=== PATIENT | female | born 1930 | race Caucasian/White ===

== ENCOUNTER 2017-04-01 15:05 | Emergency (ER) | payer MEDICARE ==
[~2017-04-01] VITALS: Ht 154.9 cm; Wt 68.0 kg
[2017-04-01] MEDS ORDERED: AMLO5TAB2 (15:34)
[2017-04-01] MEDS ORDERED: METO-387 (15:34)
[2017-04-01] MEDS ORDERED: WARF-48 (15:34)
[2017-04-01] MEDS ORDERED: CARB-88 (15:34)
[2017-04-01] MEDS ORDERED: LORA0.5T (15:34)
[2017-04-01] MEDS ORDERED: LANS30CA (15:34)
--- NOTE | 2017-04-01 15:38 | ED Cardiac General ---
History of Present Illness General Chief Complaint: Cardiac/General Problems Stated Complaint: LEFT ARM PAIN Nursing Triage Note: ARRIVED VIA AMB WITH WALKER FROM DR CENTENO OFFICE. SEEN HER TODAY FOR OFF AND ON PAIN IN HER LEFT ARM AND WAS SENT OVER FOR AN ABNORMAL EKG. DENIES CHEST PAIN OR SOA. Source: patient, family ([facility]) History of Present Illness Time seen by provider: 15:15 Initial Comments PT ARRIVES VIA POV FROM DR. ARAUJO'S OFFICE IN [place] PT HAS HAD INTERMITTENT TINGLING TO LEFT UPPER ARM FOR 2 WEEKS, IS NOT PRESENT NOW. PT STATES "IT DOESN'T HURT-IT JUST TINGLES SOMETIMES" . STATES IT IS USUALLY WHEN SHE WAKES UP AND THEN WILL GO AWAY ON IT'S OWN. NOTHING WORSENS OR IMPROVES SYMPTOMS NO CHEST PAIN NO NECK OR BACK PAIN NO SHORTNESS OF BREATH NO PALPITATIONS NO DIZZINESS NO NAUSEA/VOMITING NO NUMBNESS OR MOTOR DEFICITS PT HAS CHRONIC LEG SWELLING AND IS NOT ANY DIFFERENT TODAY PT HAD A CABG APPROXIMATELY 5 YEARS AGO EVENTS MANAGER IS IN [place]--DR. M[place] PT WAS SEEN AT DR. ARAUJO'S OFFICE TODAY FOR THIS PROBLEM, WAS NOTED TO HAVE AN ABNORMAL EKG, SO SENT PT HERE. PT HAS NOT TAKEN HER MEDICATIONS TODAY PCP: DR. CENTENO EVENTS MANAGER: DR. MANSFIELD, [place] Allergies and Home Medications Allergies Coded Allergies: levofloxacin (Verified Allergy, Unknown, 04/01/17) Home Medications Amlodipine Besylate 5 Mg Tablet, (Reported) Carbamazepine 200 Mg Tab.er.12h, (Reported) Lansoprazole 30 Mg Capsule., (Reported) Lorazepam 0.5 Mg Tablet, (Reported) Metoprolol Succinate 25 Mg Tab.er.24h, (Reported) Warfarin Sodium 5 Mg Tablet, (Reported) Review of Systems Constitutional: no symptoms reported EENTM: No Symptoms Reported Respiratory: No Symptoms Reported Cardiovascular: See HPI, Edema Gastrointestinal: No Symptoms Reported Genitourinary: No Symptoms Reported Musculoskeletal: no symptoms reported Skin: no symptoms reported Psychiatric/Neurological: See HPI, Denies Numbness, Tingling, Denies Weakness Endocrine: No Symptoms Reported Past Jryawkd-Slojij-Onmwlh Hx Patient Social History Alcohol Use: Denies Use Recreational Drug Use: No Smoking Status: Never a Smoker Recent Foreign Travel: No Contact w/Someone Who Travel: No Recent Infectious Disease Expo: No Recent Hopitalizations: No Surgeries History of Surgeries: Yes (BILATERAL MASTECTOMY; LUNG SURGERY FOR UNKNOWN REASON;LEFT HIP FX/REPLACEMENT) Surgeries: Breast, Cardiac, CABG, Gallbladder, Joint Replacement, Orthopedic Respiratory History of Respiratory Disorde: No Cardiovascular History of Cardiac Disorders: Yes (CABG) Cardiac Disorders: Chronic Edema/Swelling, Coronary Artery Disease, Deep Vein Thrombosis, Hypertension Neurological History of Neurological Disord: Yes (TRIGEMINAL NEURALGIA) Genitourinary History of Genitourinary Disor: No Gastrointestinal History of Gastrointestinal Di: No Musculoskeletal History of Musculoskeletal Dis: No Endocrine History of Endocrine Disorders: No HEENT History of HEENT Disorders: Yes (TRIGEMINAL NEURALGIA) Cancer History of Cancer: Yes Cancer: Breast Psychosocial History of Psychiatric Problem: No Integumentary History of Skin or Integumenta: No Blood Transfusions History of Blood Disorders: No Physical Exam Vital Signs Vital Sign - Last 12Hours 04/01/17 15:05 Temp 98.0 Pulse 64 Resp 16 B/P (MAP) 199/90 Pulse Ox 97 Capillary Refill : Less Than 3 Seconds General Appearance: No Apparent Distress, WD/WN, Anxious HEENT: PERRL/EOMI Neck: Full Range of Motion, Normal Inspection, Non Tender, Supple, Carotid Bruit Respiratory: Normal Breath Sounds, No Accessory Muscle Use, No Respiratory Distress Cardiovascular: Regular Rate, Rhythm, No JVD, No Murmur, Normal Peripheral Pulses Gastrointestinal: Normal Bowel Sounds, No Organomegaly, No Pulsatile Mass, Non Tender, Soft Extremity: Normal Capillary Refill, Normal Range of Motion, Non Tender, No Calf Tenderness, Pedal Edema (2+ EDEMA BILATERALLY.) Neurologic/Psychiatric: Alert, Oriented x3, No Motor/Sensory Deficits, cooker helper II- XII Norm as Tested, Other (ANXIOUS) Skin: Normal Color, Warm/Dry Progress/Results/Core Measures Results/Orders Lab Results Laboratory Tests Test 04/01/17 15:52 Range/Units White Blood Count 8.9 4.3-11.0 10^3/uL Red Blood Count 4.26 L 4.35-5.85 10^6/uL Hemoglobin 13.1 11.5-16.0 G/DL Hematocrit 40 35-52 % Mean Corpuscular Volume 95 80-99 FL Mean Corpuscular Hemoglobin 31 25-34 PG Mean Corpuscular Hemoglobin Concent 33 32-36 G/DL Red Cell Distribution Width 14.9 H 10.0-14.5 % Platelet Count 239 130-400 10^3/uL Mean Platelet Volume 8.9 7.4-10.4 FL Neutrophils (%) (Auto) 57 42-75 % Lymphocytes (%) (Auto) 31 12-44 % Monocytes (%) (Auto) 11 0-12 % Eosinophils (%) (Auto) 1 0-10 % Basophils (%) (Auto) 0 0-10 % Neutrophils # (Auto) 5.1 1.8-7.8 X 10^3 Lymphocytes # (Auto) 2.8 1.0-4.0 X 10^3 Monocytes # (Auto) 0.9 0.0-1.0 X 10^3 Eosinophils # (Auto) 0.1 0.0-0.3 10^3/uL Basophils # (Auto) 0.0 0.0-0.1 10^3/uL Prothrombin Time 19.9 H 12.2-14.7 SEC INR Comment 1.7 H 0.8-1.4 Activated Partial Thromboplast Time 31 24-35 SEC Sodium Level 142 135-145 MMOL/L Potassium Level 4.0 3.6-5.0 MMOL/L Chloride Level 107 98-107 MMOL/L Carbon Dioxide Level 24 21-32 MMOL/L Anion Gap 11 5-14 MMOL/L Blood Urea Nitrogen 14 7-18 MG/DL Creatinine 0.84 0.60-1.30 MG/DL Estimat Glomerular Filtration Rate > 60 BUN/Creatinine Ratio 17 Glucose Level 95 70-105 MG/DL Calcium Level 9.4 8.5-10.1 MG/DL Magnesium Level 2.2 1.8-2.4 MG/DL Total Bilirubin 0.4 0.1-1.0 MG/DL Aspartate Amino Transf (AST/SGOT) 24 5-34 U/L Alanine Aminotransferase (ALT/SGPT) 10 0-55 U/L Alkaline Phosphatase 74 40-136 U/L Troponin I < 0.30 <0.30 NG/ML B-Type Natriuretic Peptide 292.1 H <100.0 PG/ML Total Protein 7.1 6.4-8.2 GM/DL Albumin 3.9 3.2-4.5 GM/DL Carbamazepine (Tegretol) Level 4.7 4.0-12.0 UG/ML My Orders Orders - JUAN ANTONIO,LELA K DO Ekg Tracing (04/01/17 15:07) Cbc With Automated Diff (04/01/17 15:23) Magnesium (04/01/17 15:23) Chest 1 View, Ap/Pa Only (04/01/17:) Cardiac Profile 1 (04/01/17 15:23) Comprehensive Metabolic Panel (04/01/17:23) Protime With Inr (04/01/17:) Partial Thromboplastin Time (04/01/17:) Monitor-Rhythm Ecg Trace Only (04/01/17 15:23) Saline Lock/Iv-Start (04/01/17 15:23) BNP (04/01/17 15:23) Ct Head/Cervical Spine Wo (04/01/17 15:55) Carbamazepine (Tegretol) (04/01/17 16:26) Lorazepam Injection (Ativan Injection) (04/01/17 17:00) Metoprolol Succinate (Xl) Tab (Toprol Xl (04/01/17 17:00) Vital Signs/I&O Vital Sign - Last 12Hours 04/01/17 15:05 Temp 98.0 Pulse 64 Resp 16 B/P (MAP) 199/90 Pulse Ox 97 Blood Pressure Mean: 126 Progress Note : Progress Note PT, AND SON ALL VERY ANXIOUS NO SYMPTOMS OF ANY KIND DURING ER STAY PT ANXIOUS TO GO HOME PT WANTS TO TAKE HER OWN MEDICATIONS WHILE IN ER--RN WITNESSED/VERIFIED THAT PT TAKING CORRECT MEDICATION ECG Initial ECG Impression Time: 15:09 Initial ECG Rate: 66 Initial ECG Rhythm: Normal Sinus (LBBB) Initial ECG Comparisson: No Previous ECG Available Diagnostic Imaging Comments CXR--CARDIOMEGALY, NO ACUTE PROCESS--PER RADIOLOGIST REPORT @ 1555 CT HEAD/CERVICAL SPINE--NO ACUTE PROCESS, CHRONIC MICROVASCULAR ISCHEMIC CHANGES , DEGENERATIVE CHANGES OF SPINE WITH SEVERE CANAL NARROWING RIGHT C4-C5--PER RADIOLOGIST REPORT @ 1651 Reviewed: Reviewed by Me Departure Communication (Admissions) Progress Notes 1652--ATTEMPTING TO CONTACT DR. CENTENO 1655--SPOKE WITH DR. CENTENO, SHE FEELS COMFORTABLE WITH PT GOING HOME AND HAS ALREADY STARTED PROCESS OF REFERRAL TO [facility] FOR PARESTHESI[facility] IN ARM. PT SEES EVENTS MANAGER IN [place]. SHE DOES NOT HAVE A PREVIOUS EKG FOR COMPARISON EITHER, BUT SUSPECTS LBBB IS CHRONIC, GIVEN THAT PT HAD CABG 5 YEARS AGO. SHE REPORTS THAT PT'S BP IS USUALLY IN THE NORMAL RANGE, BUT WAS ELEVATED IN HER OFFICE TODAY--PT LATER REPORTS THAT SHE FORGOT TO TAKE HER MEDICATIONS TODAY. WILL NOT ADJUST MED DOSES AT THIS TIME. Impression Impression: Primary Impression: LBBB (left bundle branch block) Additional Impressions: Cervical spinal stenosis Paresthesia of left arm HTN (hypertension) Disposition: 01 HOME, SELF-CARE Condition: Improved Departure-Patient Inst. Referrals: JOSE GUADALUPE CENTENO MD (PCP/Family) Primary Care Physician Patient Instructions: High Blood Pressure (DC), Spinal Stenosis (DC) Add. Discharge Instructions: TAKE YOUR MEDICATIONS PRESCRIBED FOLLOW UP WITH DR. CENTENO NEXT WEEK--CALL TO SCHEDULE APPOINTMENT RETURN TO ER IF SYMPTOMS WORSEN All discharge instructions reviewed with patient and/or family. Voiced understanding. LELA ROMANO DO Apr 01, 2017 15:38
--- NOTE | 2017-04-01 15:51 | Diagnostic Imaging Report ---
EXAMINATION: Portable upright radiograph of the chest. INDICATION: Shortness of breath. COMPARISON: 07/16/2015. FINDINGS: The lungs are hyperinflated. Chronic appearing mild interstitial thickening is noted. The heart size is mildly enlarged. No effusion or pneumothorax. The mediastinum and edd appear unremarkable. Sternotomy wires are seen. Surgical clips in the left axilla and left breast are seen. IMPRESSION: COPD. Cardiomegaly. Dictated by: Dictated on workstation # [id number]
[2017-04-01 16:03] LABS: BASOPHILS % (AUTO) 0 % (0-10); EOSINOPHILS # (AUTO) 0.1 10^3/uL (0.0-0.3); EOSINOPHILS % (AUTO) 1 % (0-10); LYMPHOCYTES # (AUTO) 2.8 X 10^3 (1.0-4.0); LYMPHOCYTES % (AUTO) 31 % (12-44); MEAN CORPUSCULAR HEMOGLOBIN 31 PG (25-34); MEAN CORPUSCULAR HGB CONC 33 G/DL (32-36); MEAN CORPUSCULAR VOLUME 95 FL (80-99); MEAN PLATELET VOLUME 8.9 FL (7.4-10.4); MONOCYTES # (AUTO) 0.9 X 10^3 (0.0-1.0); MONOCYTES % (AUTO) 11 % (0-12); NEUTROPHILS # (AUTO) 5.1 X 10^3 (1.8-7.8); NEUTROPHILS % (AUTO) 57 % (42-75); PLATELET COUNT 239 10^3/uL (130-400); RED BLOOD COUNT 4.26 10^6/uL (4.35-5.85); RED CELL DISTRIBUTION WIDTH 14.9 % (10.0-14.5); WHITE BLOOD COUNT 8.9 10^3/uL (4.3-11.0)
[2017-04-01 16:14] LABS: INR 1.7 (0.8-1.4); PROTHROMBIN TIME PATIENT 19.9 SEC (12.2-14.7)
[2017-04-01 16:25] LABS: ALANINE AMINOTRANSFERASE 10 U/L (0-55); ALBUMIN 3.9 GM/DL (3.2-4.5); ANION GAP 11 MMOL/L (5-14); ASPARTATE AMINO TRANSFERASE 24 U/L (5-34); BILIRUBIN,TOTAL 0.4 MG/DL (0.1-1.0); BLOOD UREA NITROGEN 14 MG/DL (7-18); BUN/CREATININE RATIO 17; CALCIUM 9.4 MG/DL (8.5-10.1); CARBON DIOXIDE 24 MMOL/L (21-32); CHLORIDE 107 MMOL/L (98-107); CREATININE SERUM 0.84 MG/DL (0.60-1.30); GFR ESTIMATED > 60; GLUCOSE 95 MG/DL (70-105); MAGNESIUM 2.2 MG/DL (1.8-2.4); SODIUM 142 MMOL/L (135-145); TOTAL PROTEIN 7.1 GM/DL (6.4-8.2)
--- NOTE | 2017-04-01 16:44 | Diagnostic Imaging Report ---
PROCEDURE: CT head and CT cervical spine without contrast. TECHNIQUE: Multiple contiguous axial images were obtained through the brain and cervical spine without the use of intravenous contrast. Sagittal and coronal reformations through the cervical spine were then performed. INDICATION: Tingling in the left arm. FINDINGS: CT head: There is no intracranial hemorrhage. There is extensive periventricular and deep white matter hypodensities compatible with chronic microvascular ischemic changes. No hydrocephalus. No extra-axial fluid collection is seen. The visualized portions of the paranasal sinuses and orbits appear grossly unremarkable. CT cervical spine: There is minimal anterior translation of C4 over C5. The vertebral body heights are preserved. There is no significant disc height loss. The alignment of the facet joints is satisfactory. There is no widening of the predental space. There is satisfactory alignment of the lateral masses of C1 and C2 and at the atlantooccipital joints. There is severe facet arthropathy at the C4/5 level on the right side associated with severe foraminal narrowing on the right at this level. Small facet osteophytes at C4/5 and C5/6 is seen. No fracture is identified. Patchy consolidation in the right lung apex is seen, probably related to scarring as matching minimal density seen on chest x-ray from the same day has a similar appearance to 07/16/2015. IMPRESSION: 1. CT head: No intracranial hemorrhage. Extensive white matter chronic ischemic changes. 2. CT cervical spine: Prominent degenerative changes around the mid cervical spine. Minimal anterior translation of C4 over C5 is also likely degenerative. There is severe foraminal stenosis on the right side at the C4/5 level. No fracture seen. Dictated by: Dictated on workstation # [id number]
[2017-04-01] MEDS ORDERED: LORazepam INJ 2 MG/ML (ATIVAN) VIAL IVP ONE (17:00)
[2017-04-01] MEDS ORDERED: meTOproloL SUCCINATE 50 MG (TOPROL XL) TAB PO SCH (17:00)
[2017-04-01 17:21] VITALS: BP 185/81
== END 2017-04-01 17:21 | disposition home or self-care (01) ==
LOC: EDUNIT# 15:05 → ER 15:06
DX: I44.7 Left bundle-branch block, unspecified (principal); M48.02 Spinal stenosis, cervical region; I10 Essential (primary) hypertension; I25.10 Atherosclerotic heart disease of native coronary artery without angina pectoris; Z85.3 Personal history of malignant neoplasm of breast; Z86.718 Personal history of other venous thrombosis and embolism; Z79.01 Long term (current) use of anticoagulants; Z90.13 Acquired absence of bilateral breasts and nipples; Z95.1 Presence of aortocoronary bypass graft; Z96.652 Presence of left artificial knee joint
CPT/HCPCS: 36415; 70450; 71010; 72125; 80053; 80156; 83735; 83880; 84484; 85025; 85610; 85730; 93005; 93041

== ENCOUNTER → 2018-01-12 | Outpatient (CLI) | payer MEDICARE ==
[~2018-01-12] MED LIST: AMLO5TAB7; CARB-88; LANS30CA; LORA0.5T; METO-387; WARF-48
--- NOTE | 2018-01-12 11:22 | Diagnostic Imaging Report ---
INDICATION: Fall with left knee pain. AP, oblique, and lateral views of left knee are obtained. FINDINGS: No fracture or acute bony abnormality is seen. Previous intramedullary sandra in the distal femur is unremarkable. There is mild medial osteophyte formation. There is no overt joint effusion. IMPRESSION: Mild degenerative change of the left knee with no acute appearing bony abnormality. Dictated by: Dictated on workstation # [id number]
--- NOTE | 2018-01-12 11:25 | Diagnostic Imaging Report ---
INDICATION: Fall with left leg pain. AP and oblique views of left hip are obtained at 11:12 a.m. FINDINGS: Previous hardware in the femoral neck and proximal shaft is intact. There is an old fracture deformity of the intratrochanteric region. There is no definite acute fracture or acute bony abnormality. There is some chronic appearing irregularity of the left inferior pubic ramus. IMPRESSION: Postsurgical changes in left femur with no acute fracture seen. Old fracture deformity of intertrochanteric region of left proximal femur. Likely chronic irregularity of the left inferior pubic ramus. Dictated by: Dictated on workstation # [id number]
--- NOTE | 2018-01-12 11:35 | Diagnostic Imaging Report ---
INDICATION: Fall with left ankle pain. AP, oblique, and lateral views of left ankle are obtained. FINDINGS: There is osteopenia. There is no acute fracture or acute bony abnormality seen. IMPRESSION: Osteopenia with no acute fracture or acute bony abnormality. Dictated by: Dictated on workstation # [id number]
== END ==
LOC: RAD 10:36
PROVIDERS: ATTEND Family Medicine
DX: S72.142A Displaced intertrochanteric fracture of left femur, initial encounter for closed fracture (principal); M85.872 Other specified disorders of bone density and structure, left ankle and foot; M17.12 Unilateral primary osteoarthritis, left knee; W19.XXXA Unspecified fall, initial encounter
CPT/HCPCS: 73502; 73562; 73610

== ENCOUNTER → 2018-01-21 | Outpatient (CLI) | payer MEDICARE ==
--- NOTE | 2018-01-21 15:20 | Diagnostic Imaging Report ---
PROCEDURE: MRI left joint lower extremity without contrast. TECHNIQUE: Multiplanar, multisequence non contrast-enhanced MRI of the left lower extremity was accomplished. INDICATION: Fall with injury to the left knee. COMPARISON: No prior MRI study of the left knee is available for comparison. FINDINGS: Tricompartmental degenerative changes are identified, with joint space narrowing and marginal spurring and thinning of the articular cartilage. There is a large amount of edema identified in the proximal tibia, medial side. There is some curvilinear low signal intensity at this location on the T1-weighted images consistent with a fracture line. This involves the tibial plateau, however, no depression of the plateau is identified. Subchondral cystic changes at the lateral tibial plateau are identified. The distal femur and proximal fibula are intact. The ACL is intact. The PCL appears intact. The medial and lateral collateral complexes appear intact. The lateral meniscus is intact. The posterior horn of the medial meniscus is thinned. There is a large amount of intrameniscal signal of the medial meniscus body which surfaces inferiorly, suspicious for tear. This could be on a degenerative basis, however. No displaced meniscal fragment is seen. Extensor mechanism is unremarkable. The patient does have an intramedullary sandra within the distal femur which creates moderate artifact. A very small Kelly's cyst is present. Moderate edema is identified within the popliteus musculature but the popliteus tendon appears to be intact. IMPRESSION: 1. Tricompartmental degenerative change. There appears to be a fracture of the proximal tibia medial side involving the medial tibial plateau. No depression of the plateau is identified. 2. No ligamentous tear is identified. 3. Abnormal medial meniscus which may be on a chronic degenerative basis. 4. Moderate edema in the popliteus muscle suggestive of muscle strain. Popliteus tendon is intact. Report given to nurse (Luz Marina) & faxed at 3:16 p.m. 01/21/2018/cb Dictated by: Dictated on workstation # [id number]
== END ==
LOC: RAD 07:48
PROVIDERS: ATTEND Orthopaedic Surgery Sports Medicine
DX: S89.92XA Unspecified injury of left lower leg, initial encounter (principal); M17.12 Unilateral primary osteoarthritis, left knee; W19.XXXA Unspecified fall, initial encounter
CPT/HCPCS: 73721